=== PATIENT | male | born 1970 | race Two or more races ===

== ENCOUNTER 2022-11-29 14:03 | Emergency (ER) | payer MEDICAID ==
[~2022-11-29] VITALS: Ht 175.3 cm; Wt 121.6 kg
--- NOTE | 2022-11-29 14:09 | NUR ---
kline catheter inserted f16 , 500ml output still draining
[2022-11-29] MEDS ORDERED: KETOROLAC TROMETHAMINE INJ 30 MG/ML VIAL ONE (14:28)
[2022-11-29] MEDS ORDERED: KETOROLAC TROMETHAMINE INJ 30 MG/ML VIAL IM ONE (14:30)
[2022-11-29] MEDS ORDERED: HYDR-4209 PO (14:37)
[2022-11-29 14:44] VITALS: BP 118/66
--- NOTE | 2022-11-29 14:45 | NUR ---
Patient discharged to home in stable condition. Written and verbal after care instructions given. Patient verbalizes understanding of instruction.
== END 2022-11-29 14:44 | disposition home or self-care (01) ==
LOC: ER 14:05
DX: R33.9 Retention of urine, unspecified (principal); Z79.899 Other long term (current) drug therapy
CPT/HCPCS: 99284; 51702; 96372; J1885